=== PATIENT | female | born 1995 | race African-American/Black ===

== ENCOUNTER 2017-08-15 12:13 | Emergency (ER) | payer MEDICAID, OTHER ==
[~2017-08-15] VITALS: Ht 170.2 cm; Wt 136.1 kg
[2017-08-15 12:20] VITALS: BP 137/60
[2017-08-15] MEDS ORDERED: oxyCODONE HCL/Acetaminophen 5/325mg PO ONE (12:30)
[2017-08-15] MEDS ORDERED: Ketorolac 30mg Inj IV ONE (12:30)
[2017-08-15] MEDS ORDERED: Lidocaine 1% 10mg/ml/Epi 0.005mg/ml 30ml vial INJ ONE (12:30)
[2017-08-15] MEDS ORDERED: Neosporin Oint Ud Pkt TOP ONE (12:30)
[2017-08-15] MEDS ORDERED: ceFAZolin 2gm/50ml Premix 50 ML IV SCH (12:30)
[2017-08-15 13:15] LABS: APPEARANCE,URINE CLEAR; BASOPHILS % (AUTO) 0.9 % (0.0-2.0); BILIRUBIN, URINE NEGATIVE (NEGATIVE); EOSINOPHILS % (AUTO) 0.8 % (0.0-3.0); GLUCOSE, URINE (UA) NEGATIVE (NEGATIVE); HEMATOCRIT 45.2 % (37.0-47.0); HEMOGLOBIN 14.6 G/DL (12.0-16.0); KETONES,URINE NEGATIVE (NEGATIVE); LEUKOCYTE ESTERASE ,URINE 1+ (NEGATIVE); LYMPHOCYTES % (AUTO) 22.6 % (20.0-45.0); MEAN CORPUSCULAR VOLUME 88 FL (80-99); MONOCYTES % (AUTO) 11.5 % (1.0-10.0); NEUTROPHILS % (AUTO) 64.3 % (45.0-75.0); NITRITE,URINE NEGATIVE (NEGATIVE); PH,URINE 6 (4.5-8.0); PLATELET COUNT 347 K/UL (150-450); PROTEIN,URINE 2+ (NEGATIVE); RED BLOOD COUNT 5.15 M/UL (4.20-5.40); RED CELL DISTRIBUTION WIDTH 12.3 % (11.6-14.8); UROBILINOGEN,URINE NORMAL MG/DL (0.0-1.0); WHITE BLOOD COUNT 9.7 K/UL (4.8-10.8)
[2017-08-15 13:18] LABS: COLOR,URINE YELLOW
[2017-08-15 13:26] LABS: ANION GAP 6 mmol/L (5-15); BLOOD UREA NITROGEN 13 mg/dL (7-18); CALCIUM 9.3 MG/DL (8.5-10.1); CARBON DIOXIDE 26 MMOL/L (21-32); CHLORIDE 104 MMOL/L (98-107); CREATININE 0.9 MG/DL (0.55-1.30); POTASSIUM 3.5 MMOL/L (3.5-5.1); SODIUM 136 MMOL/L (136-145)
[2017-08-15 13:31] LABS: ALANINE AMINOTRANSFERASE 18 U/L (12-78); ALBUMIN 3.5 G/DL (3.4-5.0); ALBUMIN/GLOBULIN RATIO 0.8 (1.0-2.7); ALKALINE PHOSPHATASE 107 U/L (46-116); ASPARTATE AMINO TRANSFERASE 11 U/L (15-37); BILIRUBIN,TOTAL 0.4 MG/DL (0.2-1.0)
[2017-08-15 13:56] VITALS: BP 110/46
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
[2017-08-15 15:55] VITALS: BP 110/60
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
[2017-08-15] MEDS ORDERED: IBUPROFEN600 MG ORAL (17:11)
[2017-08-15] MEDS ORDERED: TRAMADOL HCL50 MG ORAL (17:11)
[2017-08-15] MEDS ORDERED: CEPHALEXIN500 MG ORAL (17:11)
[2017-08-15] MEDS ORDERED: BACITRACIN15 GM TOPIC (17:11)
[2017-08-15 17:20] VITALS: BP 110/60
== END 2017-08-15 17:20 | disposition home or self-care (01) ==
LOC: EMR 13:00
DX: S21.002A Unspecified open wound of left breast, initial encounter (principal); W34.00XA Accidental discharge from unspecified firearms or gun, initial encounter; Z88.0 Allergy status to penicillin; E66.9 Obesity, unspecified; Z68.42 Body mass index [BMI] 45.0-49.9, adult
CPT/HCPCS: 12031; 36415; 71046; 71100; 80053; 81001; 81025; 85025; 96360; 96365; 96374; 99284; J0690; J1885; Z7502

== ENCOUNTER 2017-08-17 16:55 | Emergency (ER) | payer MEDICAID ==
[~2017-08-17] VITALS: Ht 170.2 cm; Wt 136.1 kg
[~2017-08-17 16:55] MED LIST: BACITRACIN15 GM TOPIC; CEPHALEXIN500 MG ORAL; IBUPROFEN600 MG ORAL; TRAMADOL HCL50 MG ORAL
[2017-08-17 17:11] VITALS: BP 130/80
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
[2017-08-17 18:00] VITALS: BP 130/80
== END 2017-08-17 18:00 | disposition home or self-care (01) ==
LOC: EMR 17:58
DX: S21.002D Unspecified open wound of left breast, subsequent encounter (principal); W34.00XD Accidental discharge from unspecified firearms or gun, subsequent encounter; Z48.01 Encounter for change or removal of surgical wound dressing; Z88.2 Allergy status to sulfonamides
CPT/HCPCS: 99282

== ENCOUNTER 2017-08-21 13:00 | Emergency (ER) | payer MEDICAID ==
[~2017-08-21] VITALS: Ht 170.2 cm; Wt 136.1 kg
[2017-08-21] MEDS ORDERED: Bacitracin Oint UD TOPIC ONE ×2 (13:39→13:45)
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
[2017-08-21 14:00] VITALS: BP 109/59
== END 2017-08-21 14:00 | disposition home or self-care (01) ==
LOC: EMR 13:46
DX: Z48.03 Encounter for change or removal of drains (principal); S21.002D Unspecified open wound of left breast, subsequent encounter; W34.00XD Accidental discharge from unspecified firearms or gun, subsequent encounter
CPT/HCPCS: 99281